=== PATIENT | female | born 1970 | race Caucasian/White ===

== ENCOUNTER 2016-10-13 17:40 | Emergency (ER) | payer OTHER ==
[~2016-10-13] VITALS: Ht 165.1 cm; Wt 106.0 kg
[~2016-10-13 17:40] MED LIST: ALBU6.7H INH; CHERSYP2 PO; HYDR50TA3 PO; PRAV20TA2 PO; VALS1TAB63 PO; ZITHTAB PO
[2016-10-13 17:47] VITALS: BP 139/81; PULSE 98; RESP 16; TEMP 99.2; O2SAT 97
[2016-10-13] MEDS ORDERED: TIZA2TAB PO (17:59)
[2016-10-13] MEDS ORDERED: MORPHINE SULFATE 8 MG/ML INJ IM ONE (18:30)
--- NOTE | 2016-10-13 18:31 | PD ---
HPI Chief Complaint: Fall Time Seen by Provider: 18:23 Travel History International Travel<30 days: No Contact w/Intl Traveler<30days: No Traveled to known affect area: No History of Present Illness HPI Patient is a 46-year-old female with chief complaint of right upper extremity and right knee pain. She states 3 days prior he is walking downstairs when she slipped and landed on her buttock and slid down several stairs. She is unsure how she injured the arm but has had pain in the biceps and anterior elbow and forearm since. She is able to fully range but has pain with most movements through the elbow and forearm and wrist. She denies any weakness or paresthesias. She denies any back pain, headaches or neck pain. She didn't hit her head or lose consciousness. She states that she feels like her knee hyperextended when she fell and has been swollen and painful since. She states she has been able to hobble and bear some weight on it however. Her knee has been bothering her chronically for 3 weeks has had some swelling and pain in her doctor ordered an MRI which is pending. It had seemed to improve somewhat prior to this episode which is exacerbated. She denies any weakness or paresthesia. She denies any pain in the ankle or hip. PFSH Past Medical History Asthma: Yes (USES PRIMATENE INHALER PRN) High Cholesterol: Yes Diminished Hearing: No Psychiatric: No Respiratory: Yes (ASTHMA) ?: Not : 2 Para: 2 Past Surgical History Abdominal Surgery: Yes (Appendectomy) Appendectomy: Yes (1979) Gynecologic Surgery: Yes (Tubal Ligation, HYSRTERECTOMY) Hysterectomy: Yes (2006) Other Surgery: Yes (Appendectory, Tubal Ligation) Social History Alcohol Use: No Tobacco Use: Yes (1 PPD X 23 YEARS) Substance Use: No Allergies-Medications (Allergen,Severity, Reaction): Coded Allergies: Banana (Verified Allergy, Severe, 10/13/16) Lisinopril (Verified Adverse Reaction, Mild, cough, 10/13/16) Reported Meds & Prescriptions Reported Meds & Active Scripts Active Ibuprofen 600 Mg Tab 600 Mg PO Q6H PRN Lortab (Hydrocodone-Acetaminophen) 5-325 Mg Tab 1 Tab PO Q6H PRN Reported Tizanidine (Tizanidine HCl) 2 Mg Tab 2 Mg PO TID Valsartan 40 Mg Tab 40 Mg PO DAILY Hydrochlorothiazide 50 Mg Tab 50 Mg PO BID Pravastatin 20 Mg Tab 20 Mg PO DAILY Review of Systems Except as stated in HPI: all other systems reviewed are Neg Physical Exam Narrative GENERAL: Well-developed and well-nourished adult female in no acute distress. SKIN: Warm and dry. Good turgor without tenting. HEAD: Normocephalic and atraumatic. EYES: PERRL bilaterally, 5mm. EOMI bilaterally. No injection or icterus present. No proptosis. Lids without edema or erythema. ENT: Buccal mucosa pink and moist. Oropharynx free of erythema, tonsillar hypertrophy, masses, swelling, asymmetry and exudates. Uvula midline and airway patent. NECK: Supple, no midline tenderness, crepitus or step-offs. Trachea midline, no JVD. No cervical or facial lymphadenopathy. CARDIOVASCULAR: Regular rate and rhythm without murmurs, rubs, clicks or gallops. Radial and posterior tibial pulses 2+ bilaterally. Capillary refill less than 2 seconds distal tip of all digits of the right hand and right foot. No pedal edema. RESPIRATORY: Clear to auscultation bilaterally with symmetrical rise and fall, no distress or use of accessory muscles. GASTROINTESTINAL: Non-tender, non-distended. Normal bowel sounds all 4 quadrants. No masses or organomegaly present. MUSCULOSKELETAL: Right upper extremity has no edema or discoloration. Normal range of motion of the right shoulder, elbow and wrist. Patient does have pain mostly in the forearm which seems to be related to wrist and elbow movements by the banking representative of muscle strain. No specific point tenderness of the bony landmarks of the shoulder, grammatical clavicular joint, epicondyles, olecranon , scaphoid bone and metacarpals of the right upper extremity. Right knee has moderate edema without ecchymosis or erythema or warmth. Diffuse he tender to palpation but there is no specific patellar or fibular head tenderness. Negative Anabel test. Negative varus and valgus stress test. Full range of motion in the knee but does have significant pain with ranging the knee and with all special tests. Cannot perform Mayito secondary to pain. Palpation of the tib-fib and femur reveals no tenderness. Palpation of the right ankle and right hip reveals no edema or point tenderness has normal range of motion in these. Extremities without clubbing or cyanosis. No obvious deformities. NEUROLOGIC: CN II-XII grossly intact. Awake and alert. 5/5 bilateral shoulder flexion, shoulder extension, elbow flexion, elbow extension, wrist flexion, wrist extension. Sensation intact and strength 5/5 over radial, median, and ulnar nerve distributions bilaterally. Strength 5/5 bilateral hip flexion, hip extension, knee flexion, knee extension, plantar and dorsiflexion. Sensation intact to the distal tip of all fingers of right hand. Normal speech. PSYCHIATRIC: Appropriate mood and affect; insight and judgment normal. Data Data Last Documented VS Vital Signs Date Time Temp Pulse Resp B/P Pulse Ox O2 Delivery O2 Flow Rate FiO2 10/13/16 20:02 16 10/13/16 17:47 99.2 98 139/81 97 Orders Morphine Inj (Morphine Inj) (10/13/16 18:30) Elbow, Complete (4 Vws) (10/13/16 18:21) Knee, Complete (4vws) (10/13/16 18:21) Ice/Cold Pack (10/13/16 18:21) Crutches (10/13/16 20:01) Splint Or Brace Apply/Monitor (10/13/16 20:01) MDM Medical Decision Making Medical Screen Exam Complete: Yes Emergency Medical Condition: Yes Interpretation(s) Last 24 hours Impressions Knee X-Ray 10/13/161820 Signed Impressions: Service Date/Time: Thursday, October 13, 2016 19:11 - CONCLUSION: Joint effusion without definite fracture. Tyrone Gaspar MD Elbow X-Ray 10/13/161820 Signed Impressions: Service Date/Time: Thursday, October 13, 2016 19:07 - CONCLUSION: Unremarkable examination of the right elbow. Tyrone Gaspar MD Differential Diagnosis Knee sprain versus ligamentous injury versus meniscus injury versus knee fracture versus upper extremity muscle strain versus elbow sprain versus elbow fracture Narrative Course Patient is a 46-year-old female presenting 3 days after fall and sliding down several stairs with right upper extremity pain and right knee pain and swelling. The right upper extremity is most likely banking representative of muscle strain as it is diffuse and there is no specific point tenderness. Mostly tender around the elbow and proximal radius and ulna, ordered elbow x-ray. Right knee has moderate edema without warmth or discoloration. No apparent increased laxity although patient has significant discomfort with all special tests limiting the effectiveness somewhat. Performing the Mayito test with a right knee also reproduces pain making the results somewhat equivocal. The patient is neurovascularly intact. She is equivocal about weightbearing and since she has not been using a walker or wheelchair for the last 2 days she has been somewhat ambulatory with the assistance of the male who accompanied her today. Patient was given morphine and ordered x-ray of the right elbow and right knee which shows a moderate-sized effusion in the knee, otherwise unremarkable. Elbow x-ray is unremarkable. Patient has a right upper extremity strain and right knee effusion, likely secondary to sprain. As he has an MRI attempted to be scheduled recommend she obtain this and follow-up with orthopedist this week. She was given prescription for proximal and Lortab and a knee immobilizer and crutches.See discharge paperwork for further instructions. The plan was discussed with the patient who acknowledged their understanding and agreement. Reinforced the follow-up with primary care is critically important. Patient instructed on emergent conditions that should prompt return to ED. Diagnosis Primary Impression: Effusion, right knee Additional Impressions: Sprain of right knee Qualified Code: S83.511A - Sprain of anterior cruciate ligament of right knee , initial encounter Strain of elbow and forearm Qualified Code: S46.811A - Strain of elbow and forearm, right, initial encounter Patient Instructions: General Instructions, Knee Sprain (ED), Muscle Strain (ED ), Narcotic given in the ED Additional Instructions: Take medications as prescribed Apply ice every 1 to 2 hours as needed for pain Avoid maneuvers that aggravate pain Keep ROEL bandage and knee immobilizer on while being active or using extremity Use crutches when walking to avoid pressure on joint Elevate when at rest Be aware that may take several weeks for sprains to heal fully Follow-up with PCP or orthopedist in 2-3 days Recommend obtaining MRI this week Return to the ED for any acute worsening of symptoms Med/Other Pt SpecificInfo: Prescription(s) given Scripts Hydrocodone-Acetaminophen (Lortab)5-325 Mg Tab1 Tab PO Q6H PRN (PAIN) #12 TAB Ref 0 Prov:Luis Montenegro MD 10/13/16 Ibuprofen 600 Mg [id number] Mg PO Q6H PRN (Pain/Inflammation) #20 TAB Ref 0 Prov:Luis Montenegro MD 10/13/16 Disposition: 01 DISCHARGE HOME Condition: Stable Tyrone Myers III Oct 13, 2016 18:31
--- NOTE | 2016-10-13 19:37 | RADHPO ---
EXAM DATE/TIME: 10/13/2016 19:07 [facility] COMPARISON: No previous studies available for comparison. INDICATIONS : Right elbow pain post fall three days ago. MEDICAL HISTORY : None. SURGICAL HISTORY : None. ENCOUNTER: Initial ACUITY: 3 days PAIN SCORE: 7/10 LOCATION: Right elbow. FINDINGS: Multiple view examination of the right elbow demonstrates no soft tissue swelling, joint effusion, or fracture. The osseous structures are in normal alignment. Bony mineralization is normal. CONCLUSION: Unremarkable examination of the right elbow. Tyrone Gaspar MD on October 13, 2016 at 19:35 Board Certified Radiologist. This report was verified electronically.
--- NOTE | 2016-10-13 19:39 | RADHPO ---
EXAM DATE/TIME: 10/13/2016 19:11 [facility] COMPARISON: No previous studies available for comparison. INDICATIONS : Right knee pain post fall three days ago. MEDICAL HISTORY : None. SURGICAL HISTORY : None. ENCOUNTER: Initial ACUITY: 3 days PAIN SCORE: 10/10 LOCATION: Right knee. FINDINGS: There is a moderate suprapatellar effusion. Mineralization alignment are normal. No definite displace d fracture is seen. There is arthritic change with osteophytic spurring most prominent in the patello femoral joint. CONCLUSION: Joint effusion without definite fracture. Tyrone Gaspar MD on October 13, 2016 at 19:35 Board Certified Radiologist. This report was verified electronically.
[2016-10-13 20:02] VITALS: RESP 16
[2016-10-13] MEDS ORDERED: HYDR-3533 PO ×2 (20:07→20:12)
[2016-10-13] MEDS ORDERED: IBUP-232 PO (20:07)
== END 2016-10-13 20:30 | disposition home or self-care (01) ==
LOC: PHEFT 17:40
DX: S83.511A Sprain of anterior cruciate ligament of right knee, initial encounter (principal); S46.811A Strain of other muscles, fascia and tendons at shoulder and upper arm level, right arm, initial encounter; E78.00 Pure hypercholesterolemia, unspecified; F17.210 Nicotine dependence, cigarettes, uncomplicated; W10.8XXA Fall (on) (from) other stairs and steps, initial encounter; Y93.9 Activity, unspecified; Y99.9 Unspecified external cause status
CPT/HCPCS: 73080; 73564; 96372; 99283; E0113; J2270; L1830

== ENCOUNTER → 2017-01-03 | Day surgery (SDC) | payer OTHER ==
[~2017-01-03] MED LIST changes: -ALBU6.7H INH; +BUPIVACAINE/EPINEPHRINE 0.5% PF 30 ML VIAL ONE; -CHERSYP2 PO; +HYDR-3533 PO; +IBUP-232 PO; +KETOROLAC TROMETHAMINE 30 MG/ML (IVP) VIAL IV PUSH ONE; +LACTATED RINGER'S 1,000 ML BAG IV ONE; +MEPERIDINE HCL 25 MG/ML VIAL ONE; +MIDAZOLAM HCL 2 MG/2 ML VIAL ONE; +PROPOFOL 200 MG/20 ML AMP IV ONE; +TIZA2TAB PO; -ZITHTAB PO
--- NOTE | 2017-01-07 17:28 | MP ---
cc: GLEN CAMILO DATE OF SURGERY: 01/03/2017 PREOPERATIVE DIAGNOSIS Right knee medial and lateral meniscus tear. POSTOPERATIVE DIAGNOSES Right knee medial and lateral meniscus tear. PROCEDURE Right knee arthroscopic partial medial and lateral meniscectomy. SURGEON Dr. Glen Camilo ANESTHESIA General. ESTIMATED BLOOD LOSS: Less than 50 cc. TOURNIQUET TIME: Zero minutes. COMPLICATIONS: None. JUSTIFICATION: This patient is a 46-year-old female who injured the right knee. She had persistent pain in regards to her condition. She has failed conservative treatment. Clinical exam as well as MRI confirmed the above-named findings. The patient was counseled as to the risks, benefits and alternatives to the above named surgical procedure. SHe did wish to proceed with surgery. PROCEDURE IN DETAIL A written consent was obtained. The patient identified by name, taken to the operating room, placed supine on the operating room table, general anesthesia was administered as well as one gram of IV Ancef. The right thigh was carefully placed in a well-padded leg winslow. The right lower extremity was prepped and draped using isopropyl alcohol, Hibiclens solution and DuraPrep solution. After a time out was performed, a medial and lateral parapatellar arthroscopic working portal was established. The patellofemoral joint revealed mild grade 2 chondromalacia. The medial compartment revealed a large complex tear of the posterior horn and medial meniscus. An arthroscopic biter and arthroscopic shaver was introduced in the medial compartment to perform partial medial meniscectomy. The meniscal rim was probed and noted to be stable. There was mild grade 2 chondromalacia changes at the medial femoral condyle. The intercondylar notch noted the anterior posterior cruciate ligament to be intact. The lateral compartment did reveal radial tearing, mid bilateral meniscus extending into the anterior posterior horns. The arthroscopic shaver was introduced in the lateral compartment to perform partial meniscectomy. The meniscal rim was probed and noted to be stable. At the conclusion of the procedure 30 cc of 0.5% Marcaine with epinephrine was injected into the knee joint. The arthroscopic portal was closed with 3-0 Prolene suture. Sterile dressing applied. The patient tolerated the procedure well. No intraoperative complications noted. MD BOBBY Long/JC /11:58 AM /5:13 PM
== END | disposition home or self-care (01) ==
LOC: ESDC 09:47
PROVIDERS: ATTEND Orthopaedic Surgery Sports Medicine
DX: S83.231A Complex tear of medial meniscus, current injury, right knee, initial encounter (principal); S83.281A Other tear of lateral meniscus, current injury, right knee, initial encounter
CPT/HCPCS: 01400; 29880; J1885; J2175; J2250; J3010; J7120